=== PATIENT | female | born 1970 | race Caucasian/White ===

== ENCOUNTER 2020-10-05 20:54 | Inpatient (IN) ==
[2020-10-05 22:29] LABS: Bilirubin,Total 0.4 MG/DL (0.20-1.00); Osmolality,Calculated 279.4 MOS/KG (273-304); Potassium 3.5 MMOL/L (3.5-5.1)
[2020-10-05] MEDS ORDERED: DEXAMETHASONE 4 MG/1 ML VIAL IV STA (22:34)
[2020-10-05] MEDS ORDERED: AZITHROMYCIN INJ 500 MG in SODIUM CHLORIDE 0.9% 250 ML IV STA (22:34)
[2020-10-05] MEDS ORDERED: SODIUM CHLORIDE 0.9% 1,000 ML IV STA (22:34)
[2020-10-05] MEDS ORDERED: KETOROLAC 30 MG/1 ML VIAL IV STA (22:35)
[2020-10-05 23:56] LABS: Eosinophils % 0.3 % (0.00-10.9); Hematocrit 20.6 VOL% (35.7-47.0); Immature Granulocytes % 0.8 %; Immature Granulocytes Absolute 0.03 #; Lymphocytes # 0.8 10*3/uL (1.4-4.0); Lymphocytes % 19.8 % (21.3-54.2); Mean Corpuscular HGB Conc 26.2 GM/DL (32-36); Mean Corpuscular Volume 71.8 FL (87-102); NRBC # 0.04 10*3/uL; Neutrophils % 74.1 % (38.7-73.9); Platelet Count 212 T/CUMM (130-400); Red Blood Count 2.87 MC/CUMM (3.8-5.5); Red Cell Distribution Width 19.9 % (9.3-17.3); White Blood Count 3.8 T/CUMM (4-12)
[2020-10-06 00:04] LABS: Hemoglobin 5.4 GM/DL (12.0-16.0)
[2020-10-06] MEDS ORDERED: ACETAMINOPHEN 325 MG TABLET PO PRN (01:46)
[2020-10-06] MEDS ORDERED: SODIUM CHLORIDE 0.9% 1,000 ML IV PRN (01:46)
[2020-10-06] MEDS ORDERED: MELATONIN 3 MG TABLET PO PRN (02:14)
[2020-10-06] MEDS ORDERED: DOCUSATE SODIUM 100 MG CAPSULE PO PRN (02:14)
[2020-10-06] MEDS ORDERED: ONDANSETRON 4 MG/2 ML VIAL IV PRN (02:14)
[2020-10-06] MEDS ORDERED: diphenhydrAMINE CAP 25 MG CAPSULE PO PRN (04:26)
[2020-10-06 07:44] LABS: Sedimentation Rate-Westergren 109 MM/HR (0-30)
[2020-10-06 09:17] LABS: Eosinophils % 0.3 % (0.00-10.9); Hematocrit 20.6 VOL% (35.7-47.0); Immature Granulocytes % 0.8 %; Immature Granulocytes Absolute 0.03 #; Lymphocytes # 0.8 10*3/uL (1.4-4.0); Lymphocytes % 19.8 % (21.3-54.2); Mean Corpuscular HGB Conc 26.2 GM/DL (32-36); Mean Corpuscular Volume 71.8 FL (87-102); NRBC # 0.04 10*3/uL; Neutrophils % 74.1 % (38.7-73.9); Platelet Count 212 T/CUMM (130-400); Red Blood Count 2.87 MC/CUMM (3.8-5.5); Red Cell Distribution Width 19.9 % (9.3-17.3); White Blood Count 3.8 T/CUMM (4-12)
[2020-10-06 09:18] LABS: Hemoglobin 5.4 GM/DL (12.0-16.0)
[2020-10-06 09:28] LABS: Band Neutrophils 11 % (0-10); Lymphocytes 19 % (20-55); Metamyelocytes 1 %; Nucleated Red Blood Cells 2 (0-5); Segmented Neutrophils 64 % (50-85); Total Cells Counted 100
[2020-10-06 09:29] LABS: Anisocytosis 2+; Atypical Lymphocytes Few; Ovalocytes Few; Platelet Estimate Normal; Tear Drop Cells Few
[2020-10-06 09:30] LABS: Misc Morphology 3S
[2020-10-06] MEDS: ASCORBIC ACID 500 MG TABLET PO SCH ×2 (10:15→21:54)
[2020-10-06] MEDS: DEXAMETHASONE 4 MG/1 ML VIAL IV SCH (10:15)
[2020-10-06] MEDS: CHOLECALCIFEROL 1,000 UNIT TABLET PO SCH (10:16)
[2020-10-06] MEDS ORDERED: REMDESIVIR 200 MG in SODIUM CHLORIDE 0.9% 210 ML IV ONE (11:00)
[2020-10-06] MEDS: ALBUTEROL INHALER 18 GM INH SCH ×3 (13:18→19:32)
[2020-10-06 15:19] LABS: Hematocrit 27.4 VOL% (35.7-47.0); Immature Granulocytes Absolute 0.04 #; Lymphocytes # 0.6 10*3/uL (1.4-4.0); Lymphocytes % 14.4 % (21.3-54.2); Mean Corpuscular HGB Conc 28.5 GM/DL (32-36); Mean Corpuscular Volume 75.1 FL (87-102); Monocytes % 2.4 % (1.7-12.7); NRBC # 0.05 10*3/uL; Neutrophils % 82.2 % (38.7-73.9); Platelet Count 216 T/CUMM (130-400); Red Blood Count 3.65 MC/CUMM (3.8-5.5); Red Cell Distribution Width 20.5 % (9.3-17.3); White Blood Count 3.8 T/CUMM (4-12)
[2020-10-06 15:20] LABS: Hemoglobin 7.8 GM/DL (12.0-16.0)
[2020-10-06 15:53] LABS: Folate 17.27 NG/ML (5.38-24.0); Vitamin B12 557 PG/ML (211-911)
[2020-10-06] MEDS: FAMOTIDINE 20 MG TABLET PO SCH ×2 (17:00→21:54)
[2020-10-06] MEDS: CETIRIZINE 10 MG TABLET PO SCH (17:01)
[2020-10-06] MEDS: ZINC GLUCONATE 50 MG TABLET PO SCH (17:01)
[2020-10-06 17:08] LABS: Anisocytosis 1+; Microcytosis 1+
[2020-10-06 17:10] LABS: Tear Drop Cells Few
[2020-10-06 17:11] LABS: Hypochromasia 2+; Platelet Estimate Adequate; Polychromasia Few; Schistocytes Few
[2020-10-06 17:12] LABS: Ovalocytes Few
[2020-10-07] MEDS: ALBUTEROL INHALER 18 GM INH SCH ×4 (00:06→18:10)
[2020-10-07 05:47] LABS: Calcium 8.5 MG/DL (8.5-10.1)
[2020-10-07 05:58] LABS: Osmolality,Calculated 284.3 MOS/KG (273-304); Potassium 4.5 MMOL/L (3.5-5.1)
[2020-10-07 06:27] LABS: Basophils % 0.3 % (0.0-0.8); Hematocrit 26.5 VOL% (35.7-47.0); Hemoglobin 7.5 GM/DL (12.0-16.0); Immature Granulocytes % 0.5 %; Immature Granulocytes Absolute 0.02 #; Lymphocytes # 0.8 10*3/uL (1.4-4.0); Lymphocytes % 20.8 % (21.3-54.2); Mean Corpuscular HGB Conc 28.3 GM/DL (32-36); Mean Corpuscular Volume 75.7 FL (87-102); Monocytes % 6.9 % (1.7-12.7); NRBC # 0.07 10*3/uL; Neutrophils % 71.5 % (38.7-73.9); Platelet Count 231 T/CUMM (130-400); Red Cell Distribution Width 20.7 % (9.3-17.3); White Blood Count 3.9 T/CUMM (4-12)
[2020-10-07] MEDS ORDERED: SODIUM CHLORIDE 0.9% 1,000 ML IV PRN ×2 (07:36→16:04)
[2020-10-07] MEDS ORDERED: REMDESIVIR 100 MG in SODIUM CHLORIDE 0.9% 100 ML IV SCH (09:00)
[2020-10-07] MEDS: ZINC GLUCONATE 50 MG TABLET PO SCH (09:48)
[2020-10-07] MEDS: DEXAMETHASONE 4 MG/1 ML VIAL IV SCH (09:48)
[2020-10-07] MEDS: CETIRIZINE 10 MG TABLET PO SCH (09:49)
[2020-10-07] MEDS: AZITHROMYCIN 250 MG TABLET PO SCH (09:49)
[2020-10-07] MEDS: ASCORBIC ACID 500 MG TABLET PO SCH ×2 (09:49→21:50)
[2020-10-07] MEDS: FAMOTIDINE 20 MG TABLET PO SCH ×2 (09:49→21:50)
[2020-10-07] MEDS: CHOLECALCIFEROL 1,000 UNIT TABLET PO SCH (09:49)
[2020-10-07 10:03] LABS: Hypochromasia 3+; Microcytosis 3+; Platelet Estimate Normal
[2020-10-07 11:29] LABS: Hematocrit 25.6 VOL% (35.7-47.0); Hemoglobin 7.4 GM/DL (12.0-16.0)
[2020-10-08] MEDS: ALBUTEROL INHALER 18 GM INH SCH ×4 (01:18→18:04)
[2020-10-08 07:57] LABS: Basophils % 0.1 % (0.0-0.8); Hematocrit 32.8 VOL% (35.7-47.0); Hemoglobin 9.6 GM/DL (12.0-16.0); Immature Granulocytes % 0.9 %; Immature Granulocytes Absolute 0.08 #; Lymphocytes # 1.4 10*3/uL (1.4-4.0); Lymphocytes % 15.5 % (21.3-54.2); Mean Corpuscular HGB Conc 29.3 GM/DL (32-36); Mean Corpuscular Volume 76.6 FL (87-102); NRBC # 0.08 10*3/uL; Neutrophils % 77.5 % (38.7-73.9); Platelet Count 198 T/CUMM (130-400); Red Blood Count 4.28 MC/CUMM (3.8-5.5); Red Cell Distribution Width 21.3 % (9.3-17.3); White Blood Count 8.7 T/CUMM (4-12)
[2020-10-08 08:25] LABS: Calcium 8.2 MG/DL (8.5-10.1); Osmolality,Calculated 286.1 MOS/KG (273-304); Potassium 4.4 MMOL/L (3.5-5.1)
[2020-10-08] MEDS: FAMOTIDINE 20 MG TABLET PO SCH ×2 (08:43→21:49)
[2020-10-08] MEDS: ZINC GLUCONATE 50 MG TABLET PO SCH (08:44)
[2020-10-08] MEDS: CHOLECALCIFEROL 1,000 UNIT TABLET PO SCH (08:44)
[2020-10-08] MEDS: IVERMECTIN 3 MG TABLET PO SCH (08:44)
[2020-10-08] MEDS: AZITHROMYCIN 250 MG TABLET PO SCH (08:45)
[2020-10-08] MEDS: DEXAMETHASONE 4 MG/1 ML VIAL IV SCH (08:45)
[2020-10-08] MEDS: ASCORBIC ACID 500 MG TABLET PO SCH ×2 (11:01→21:49)
[2020-10-08] MEDS: CETIRIZINE 10 MG TABLET PO SCH (11:02)
[2020-10-08] MEDS ORDERED: ENOXAPARIN 40 MG/0.4 ML SYRINGE SUBCUT SCH (21:00)
[2020-10-09] MEDS: ALBUTEROL INHALER 18 GM INH SCH ×2 (01:22→07:05)
[2020-10-09 07:23] LABS: Basophils % 0.2 % (0.0-0.8); Immature Granulocytes % 0.6 %; Immature Granulocytes Absolute 0.04 #; Lymphocytes # 1.5 10*3/uL (1.4-4.0); Lymphocytes % 23.2 % (21.3-54.2); Mean Corpuscular HGB Conc 29.4 GM/DL (32-36); Mean Corpuscular Volume 78.1 FL (87-102); Monocytes % 8.7 % (1.7-12.7); NRBC # 0.08 10*3/uL; Neutrophils % 67.3 % (38.7-73.9); Platelet Count 184 T/CUMM (130-400); Red Blood Count 3.97 MC/CUMM (3.8-5.5); Red Cell Distribution Width 21.7 % (9.3-17.3); White Blood Count 6.3 T/CUMM (4-12)
[2020-10-09 07:27] LABS: Hemoglobin 9.1 GM/DL (12.0-16.0)
[2020-10-09 07:31] LABS: Hypochromasia 1+; Lymphocytes 23 % (20-55); Microcytosis 1+; Platelet Estimate Adequate; Segmented Neutrophils 73 % (50-85); Total Cells Counted 100
[2020-10-09] MEDS ORDERED: MELATONIN 3 MG TABLET PO PRN (08:00)
[2020-10-09 08:23] LABS: Ferritin 15.2 ng/ml (8-252)
[2020-10-09] MEDS: AZITHROMYCIN 250 MG TABLET PO SCH (08:43)
[2020-10-09] MEDS: FAMOTIDINE 20 MG TABLET PO SCH (08:43)
[2020-10-09] MEDS: ZINC GLUCONATE 50 MG TABLET PO SCH (08:44)
[2020-10-09] MEDS: CETIRIZINE 10 MG TABLET PO SCH (08:44)
[2020-10-09] MEDS: ASCORBIC ACID 500 MG TABLET PO SCH (08:44)
[2020-10-09] MEDS: IVERMECTIN 3 MG TABLET PO SCH (08:46)
[2020-10-09 08:57] LABS: Hemoglobin A1 (Alkaline) 97.8 % (96.5-98.5); Hemoglobin A2 (Alkaline) 2.2 % (1.5-3.5)
[2020-10-09] MEDS ORDERED: CHOLECALCIFEROL 5,000 UNIT TABLET PO SCH (09:00)
[2020-10-09] MEDS: DEXAMETHASONE 4 MG/1 ML VIAL IV SCH (10:13)
[2020-10-09 12:30] VITALS: BP 119/67
== END 2020-10-09 14:56 | disposition home or self-care (01) | DRG 177 ==
LOC: N.ED 20:54 → N.EDINP 10-06 01:46 → SUATTDRO 10-06 01:46 → N.2E 10-06 02:43
PROVIDERS: ADMIT Hospitalist; ATTEND Internal Medicine